=== PATIENT | male | born 1955 | race Caucasian/White ===

== ENCOUNTER 2019-11-28 00:49 | Outpatient (CLI) | payer MEDICARE, SELFPAY ==
[2019-11-28 19:20] LABS: SARS-CoV-2 RNA PCR Negative
== END 2019-11-28 00:50 | disposition home or self-care (01) ==
LOC: ANHCOVIDDT 00:49
PROVIDERS: PCP Internal Medicine; Visit Provider Internal Medicine Gastroenterology
DX: Z01.812 Encounter for preprocedural laboratory examination (principal); Z11.59 Encounter for screening for other viral diseases
CPT/HCPCS: 87635; C9803; U0003

== ENCOUNTER 2019-11-30 02:47 | Day surgery (SDC) | payer MEDICARE, SELFPAY ==
[2019-11-23 11:33] VITALS: BMI 30.2
--- NOTE | 2019-11-30 07:20 | WPDANESEPPF ---
Anes - Initial Pre Proc Eval Procedure: Operation Date: 11/30/19 09:30 Proposed Procedures p Screening Colonoscopy - Tim River MD Date/Time: 11/30/19 07:20 Surgeon: Tim River MD Pre Op Diagnosis: Neoplasm Screening Patient Data Age: 64 Gender: M Height: 1.75 m Weight: 93 kg Allergies Allergy/AdvReac Type Severity Reaction Status Date / Time Penicillins AdvReac Unknown Unknown Verified 11/30/19 08:22 Reaction as a baby Home Medications Medication Instructions Recorded Confirmed Type Adults Multivitamin 1 tablet PO DAILY 04/11/19 11/23/19 History lisinopril 10 mg PO QAM 11/23/19 11/23/19 History rosuvastatin 40 mg PO QAM 11/23/19 11/23/19 History Patient hx anesthesia problems: none Family hx anesthesia problems: none PMFSH Past Medical History Medical History (Updated 11/30/19 @ 07:23 by Yakov Etienne MD) Carpal tunnel syndrome, right upper limb Hyperlipidemia Hypertension Obesity Other cyst of bone, unspecified site Pain of right hand Peroneal tendon tear Shoulder pain Surgical History Surgical History H/O shoulder surgery Orthopedic aftercare (04/21/19) Primary osteoarthritis of left foot Family History Family History Father Family history of cardiovascular disease Other Diabetes mellitus Family history of mental disorder Heart disease Hypertension Social History Social History Social History: 2 drinks/day Smoking status: Never smoker Alcohol intake: current Substance use: unknown 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 Questions were solicited and answers provided to the satisfaction of the patient/family/POA.
[2019-11-30 08:08] VITALS: BP 144/79; PULSE 89; RESP 16; TEMP 36.6; O2SAT 96; BMI 30.4
[2019-11-30] MEDS: LACTATED RINGERS 1,000 ML 150 ML IV CONT (08:37)
--- NOTE | 2019-11-30 09:25 | P.HP_ITS ---
History of Present Illness History of Present Illness Consent: Risks, benefits, and alternatives have been discussed and questions answered. Patient agrees to proceed with procedure. Chief complaint: Neoplasm Screening Narrative: Gregory Stevenson is a 64 year old male Referred for colon cancer screening. [facility] Past Medical History Medical History Carpal tunnel syndrome, right upper limb Hyperlipidemia Hypertension Obesity Other cyst of bone, unspecified site Pain of right hand Peroneal tendon tear Shoulder pain Surgical History Surgical History H/O shoulder surgery Orthopedic aftercare (04/21/19) Primary osteoarthritis of left foot Family History Family History Father Family history of cardiovascular disease Other Diabetes mellitus Family history of mental disorder Heart disease Hypertension Social History Social History Social History: 2 drinks/day Smoking status: Never smoker Alcohol intake: current Substance use: unknown 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 [employer] Gender identity (if verbalized by the patient): Male Spiritual care concerns: No Meds Home Medications and Allergies Home Medications Medication Instructions Recorded Confirmed Type Adults Multivitamin 1 tablet PO DAILY 04/11/19 11/23/19 History lisinopril 10 mg PO QAM 11/23/19 11/23/19 History rosuvastatin 40 mg PO QAM 11/23/19 11/23/19 History Allergies Allergy/AdvReac Type Severity Reaction Status Date / Time Penicillins AdvReac Unknown Unknown Verified 11/30/19 08:22 Reaction as a baby Vital Signs Vital Signs - 24 hr 11/30/19 08:08 Temperature 36.6 C Pulse Rate 89 Respiratory Rate 16 Blood Pressure 144/79 H Pulse Oximetry 96 Exam Resp: Auscultation: clear to auscultation bilaterally Cardio: Rate: regular rate Rhythm: regular rhythm GI: GI Palp: Yes Soft to palpation and No Tenderness to palpation present (GI) Assessment and Plan Assessment and plan (1) Colon cancer screening: Code(s): Z12.11 - Encounter for screening for malignant neoplasm of colon Status: Acute Assessment and Plan: Colonoscopy with possible biopsy or polypectomy or cautery or injection of substances.
[2019-11-30 09:44] VITALS: BP 98/60; PULSE 76; RESP 20; O2SAT 96
[2019-11-30 09:54] VITALS: BP 100/59; PULSE 82; RESP 17; O2SAT 97
[2019-11-30 10:04] VITALS: BP 121/82; PULSE 67; RESP 18; O2SAT 98
== END 2019-11-30 10:20 | disposition home or self-care (01) ==
PROVIDERS: PCP Internal Medicine; Visit Provider Internal Medicine Gastroenterology
PROC: 0DJD8ZZ Inspection of Lower Intestinal Tract, Via Natural or Artificial Opening Endoscopic (ICD-10-PCS; CPT 45378; principal; 2019-11-30 09:30)
DX: Z12.11 Encounter for screening for malignant neoplasm of colon (principal); K57.30 Diverticulosis of large intestine without perforation or abscess without bleeding; D12.8 Benign neoplasm of rectum; I10 Essential (primary) hypertension; E78.5 Hyperlipidemia, unspecified; E66.9 Obesity, unspecified; Z68.30 Body mass index [BMI] 30.0-30.9, adult
CPT/HCPCS: 45385; 87635; 88305; C9803; J2704; J7120; U0003

== ENCOUNTER → 2020-08-20 02:47 | Outpatient (CLI) | payer MEDICARE, SELFPAY ==
[2020-08-20 19:42] LABS: SARS-CoV-2 RNA PCR Negative
== END ==
PROVIDERS: PCP Internal Medicine; Visit Provider Orthopaedic Surgery
DX: Z01.812 Encounter for preprocedural laboratory examination (principal); Z20.822 Contact with and (suspected) exposure to COVID-19
CPT/HCPCS: C9803; U0003; U0005

== ENCOUNTER 2020-08-20 09:22 | Outpatient (CLI) | payer MEDICARE, SELFPAY ==
--- NOTE | 2020-08-20 15:00 | ECG_ITS ---
Measurements Intervals [place] Rate: 85 P: 45 ME: 162 QRS: 43 QRSD: 93 T: 41 QT: 359 QTc: 427 Interpretive Statements SINUS RHYTHM WITH SINUS ARRHYTHMIA ATRIAL PREMATURE COMPLEX INCOMPLETE RIGHT BUNDLE BRANCH BLOCK BASELINE ARTIFACT- I, II, III, AVR, AVL, AVF, V6 BORDERLINE ECG Electronically Signed On 08-20-2020 9:41:49 CDT by Wero Bauman D.O.
== END 2020-08-20 09:23 | disposition home or self-care (01) ==
LOC: ANHSURGERY 09:27
PROVIDERS: PCP Internal Medicine; Visit Provider Orthopaedic Surgery
DX: I10 Essential (primary) hypertension (principal); Z01.818 Encounter for other preprocedural examination; I45.10 Unspecified right bundle-branch block
CPT/HCPCS: 93005

== ENCOUNTER 2020-08-23 00:36 | Day surgery (SDC) | payer MEDICARE, SELFPAY ==
[2020-08-16 10:37] VITALS: BMI 31.2
[2020-08-23 06:48] VITALS: BP 138/85; PULSE 83; RESP 18; TEMP 37.2; O2SAT 99
--- NOTE | 2020-08-23 07:18 | WPDHPUPDATE1 ---
History and Physical Update Update Date/Time: 08/23/20 07:18 History and Physical has been reviewed, including an updated exam of the patient. There are NO changes in the patient's condition. Covid test negative. Risks, benefits, and alternatives have been discussed and questions answered. Patient agrees to proceed with procedure.
[2020-08-23] MEDS: ACETAMINOPHEN 500 MG TABLET 1000 MG PO (07:28)
[2020-08-23] MEDS: LACTATED RINGERS 1,000 ML 30 ML IV CONT (07:30)
[2020-08-23] MEDS: KETOROLAC 15 MG/ML VIAL (*BKC) IV PUSH (07:35)
--- NOTE | 2020-08-23 08:02 | P.PNAN_ITS ---
Anes - Initial Pre Proc Eval Procedure: Operation Date: 08/23/20 08:30 Proposed Procedures p Right Carpal Tunnel Release - Pb Ramirez MD Date/Time: 08/23/20 08:02 Surgeon: Pb Ramirez MD Pre Op Diagnosis: right carpal tunnel syndrome Patient Data Age: 65 Gender: M Height: 5 ft 9 in Weight: 100.3 kg Last Vital Signs Temp 37.2 C 08/23/20 06:48 Pulse 83 08/23/20 06:48 Resp 18 08/23/20 06:48 BP 138/85 08/23/20 06:48 Pulse Ox 99 08/23/20 06:48 Allergies Allergy/AdvReac Type Severity Reaction Status Date / Time Penicillins Allergy Unknown Unknown Verified 08/23/20 07:28 Reaction as a baby Home Medications Medication Instructions Recorded Confirmed Type Adults Multivitamin 1 tablet PO DAILY 04/11/19 08/16/20 History lisinopril 10 mg PO QAM 11/23/19 08/16/20 History rosuvastatin 40 mg PO QAM 08/16/20 08/16/20 History Patient hx anesthesia problems: none Family hx anesthesia problems: none PMFSH Past Medical History Medical History Carpal tunnel syndrome, right upper limb Hyperlipidemia Hypertension Obesity Other cyst of bone, unspecified site Pain of right hand Peroneal tendon tear Shoulder pain Surgical History Surgical History H/O shoulder surgery Orthopedic aftercare (04/21/19) Primary osteoarthritis of left foot Family History Family History Father Family history of cardiovascular disease Other Diabetes mellitus Family history of mental disorder Heart disease Hypertension Social History Social History Social History: 2 drinks/day Smoking packs per day: 0.75 Smoking cigarettes per day: 15.0 Years smoked: 15 Smoking pack-years: 11.25 Smoking status: Former smoker Smoking end date: 11/08/84 Alcohol intake: current Drinks per week: 7 Alcohol use details: WINE Substance use: never Living arrangements: with family Additional living arrangements comments: 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 [employer] Gender identity (if verbalized by the patient): Male Spiritual care concerns: No Anes - Eval Final PreProcedure Day of Procedure 08/23/20 08:02 Patient weight: obese Heart: regular rate and rhythm Lungs: clear to auscultation Airway: Mallampati scale class II Neurological: alert and oriented Last oral intake: >/= 8 hours ASA classification: III Emergent: no Anesthetic plan: proceed Anesthesia type and monitoring: general GIVS and standard monitoring Informed Consent: The patient's anesthetic plan and its attendant risks and benefits were discussed with the patient/family/POA. Questions were solicited and answers provided to the satisfaction of the patient/family/POA.
[2020-08-23] MEDS: ceFAZolin 2 GM/D5W 50 ML 2 GM/50 ML BAG IVPB (08:36)
[2020-08-23] MEDS: BUPIVACAINE/EPINEPHRINE 0.5% 30 ML VIAL 20 ML INFILTRATE (08:52)
[2020-08-23 09:19] VITALS: BP 107/56; PULSE 83; RESP 14; O2SAT 93
--- NOTE | 2020-08-23 09:33 | PM.PROC ---
Procedure Note - Detailed Date of procedure: 08/23/20 Pre-op diagnosis: right carpal tunnel syndrome Post-op diagnosis: same Procedure performed: Right carpal tunnel release Description of procedure: Operative Indications: The patient has history, exam findings, and electrodiagnostic findings consistent with carpal tunnel syndrome. Patient had previous carpal tunnel release 20 years ago. Conservative treatment with bracing/ splinting, activity modifications, medication, ergonomics, injections has failed. Symptoms are daily and affect ability to use hand. The patient desires operative treatment. Procedure: After informed consent was given, the operative extremity was marked in the preoperative holding area. Intravenous antibiotics were given. The patient was taken to the operating room and underwent conscious sedation by the anesthesia team. A time-out was performed confirming patient, procedure, and operative site. Local infiltrate at the carpal tunnel was done with 0.5% marcaine. Prepping and draping was done using chloraprep skin solution with usual surgical sterile technique. Anatomic landmarks marked on skin. Hand was exsanguinated and arm tourniquet inflated to 225mmHg. Incision was made with #15 blade knife in skin crease on volar palm. Hemostasis was achieved with electrocautery. Careful dissection was carried down to the transverse carpal ligament. Retractors were placed. Ligament overlying median nerve was incised in line with skin incision using cherokee blade. Proximal and distal release was done with metzenbaum scissors under direct visualization. Mosquito clamp was placed deep to ligament to protect nerve during release. The nerve was inspected and noted to be intact with mild flattening. Tendons had good excursion. The tourniquet was then released and pressure held. Bleeding points were coagulated with bipolar cautery. The wound was thoroughly irrigated with antibiotic solution. The skin was closed with 4-0 nylon interrupted suture. A sterile dressing was applied. Good capillary refill in the fingers and thumb was noted. The patient was transported to the recovery room in stable condition. All sponge, needle, instrument counts were correct at the end of the case. Implants: None Anesthesia: MAC Surgeon: Pb Ramirez MD Estimated blood loss (mL): 3 Tourniquet time (min): 10 Drains: No Packing: No Pathology: none sent Complications: None Condition: stable Disposition: PACU
[2020-08-23 09:45] VITALS: BP 101/57; PULSE 73; RESP 14; O2SAT 93
[2020-08-23 10:15] VITALS: BP 118/60; PULSE 71; RESP 14
== END 2020-08-23 10:31 | disposition home or self-care (01) ==
PROVIDERS: PCP Internal Medicine; Visit Provider Orthopaedic Surgery
PROC: (CPT 64721; principal; 2020-08-23 08:30)
DX: G56.01 Carpal tunnel syndrome, right upper limb (principal); E78.5 Hyperlipidemia, unspecified; I10 Essential (primary) hypertension; Z87.891 Personal history of nicotine dependence; E66.9 Obesity, unspecified; Z68.32 Body mass index [BMI] 32.0-32.9, adult
CPT/HCPCS: 64721; 93005; A9270; C9803; J0690; J1885; J2250; J2704; J3010; J7120; U0003; U0005

== ENCOUNTER 2020-11-22 08:41 | Emergency (ER) | payer MEDICARE, SELFPAY ==
[2020-11-22 08:50] VITALS: BP 149/87; PULSE 85; RESP 16; TEMP 36.6; O2SAT 98
--- NOTE | 2020-11-22 09:14 | ED.URI ---
HPI - URI/Sore Throat General Chief Complaint: Upper Respiratory Infection Stated Complaint: Cough,Congestion Time Seen by Provider: 11/22/20 09:14 Source: patient Mode of arrival: ambulatory Limitations: no limitations History of Present Illness HPI Narrative: Gregory Stevenson is a 65 yo male with a PMH of high blood pressure and high blood pressure, who [facility] with 4 to 5 days symptoms of congested sinuses and drainage on the back throat coughing aspect especially at night when lying flat. Patient denies fever Related Data Home Medications Medication Instructions Recorded Confirmed lisinopril 10 mg PO QAM 11/23/19 11/22/20 rosuvastatin 40 mg PO QAM 08/16/20 11/22/20 guaifenesin [Mucinex] 1,200 mg PO BID 11/22/20 11/22/20 Allergies Allergy/AdvReac Type Severity Reaction Status Date / Time Penicillins Allergy Unknown Unknown Verified 11/07/20 13:55 Reaction as a baby Review of Systems Review of Systems: Narrative: CONSTITUTIONAL: Denies fever, chills, sweats. EYES: Denies visual changes, redness, discharge. ENT: Denies rhinorrhea, is congestion, no sore throat, otalgia. CARDIOVASCULAR: Denies chest pain, palpitations, edema. RESPIRATORY: Denies dyspnea, wheezing, has cough GASTROINTESTINAL: Denies abdominal pain, nausea, vomiting, diarrhea. GENITOURINARY: Denies dysuria, hematuria, abnormal discharge SKIN: Denies rash or itching. NEUROLOGIC: Denies numbness, or focal weakness. PSYCHIATRIC: Denies anxiety or depression. [facility] Past Medical History Medical History (Updated 11/22/20 @ 09:21 by Amaris Coyle CNP) Carpal tunnel syndrome, right upper limb Hyperlipidemia Hypertension Obesity Other cyst of bone, unspecified site Pain of right hand Peroneal tendon tear Shoulder pain Surgical History Surgical History H/O shoulder surgery Orthopedic aftercare (04/21/19) Primary osteoarthritis of left foot Family History Family History Father Family history of cardiovascular disease Other Diabetes mellitus Family history of mental disorder Heart disease Hypertension Social History Social History Social History: 2 drinks/day Smoking packs per day: 0.75 Smoking cigarettes per day: 15.0 Years smoked: 15 Smoking pack-years: 11.25 Smoking end date: 11/08/84 Alcohol intake: current Drinks per week: 7 Alcohol use details: WINE Substance use: never Additional living arrangements comments: 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 There is no relevant family history pertinent to the presenting complaint. Exam Narrative: Exam Narrative: GENERAL: This is a well-nourished, well-developed patient, in mild distress. HEAD: normocephalic, atraumatic. EYES: Sclera clear/white. Vision is grossly intact. EARS: External ears normal, auditory canals mild erythema and without drainage, TMs normal without perforation. Hearing grossly intact. NOSE: External nose normal without nasal discharge, nares with redness, has rhinorrhea. THROAT: Mucous membranes moist, posterior pharynx erythema NECK: Neck supple, non-tender CARDIOVASCULAR: Regular rate and rhythm without murmurs, gallops, or rubs. RESPIRATORY: Clear to auscultation. Breath sounds equal bilaterally. No wheezes, rales, or rhonchi. GASTROINTESTINAL: Abdomen soft, SKIN: warm, intact with no suspicious lesions or rash, good texture and turgor. NEURO: awake, alert, and oriented to person, place and time. There were no obvious focal neurologic abnormalities. Steady gait EXTREMITIES: Normal range of motion. BACK: Nontend
== END 2020-11-22 09:35 | disposition home or self-care (01) ==
PROVIDERS: Emergency Provider Nurse Practitioner; PCP Internal Medicine
DX: R05 Cough (principal); J01.10 Acute frontal sinusitis, unspecified; F17.210 Nicotine dependence, cigarettes, uncomplicated; E78.5 Hyperlipidemia, unspecified; I10 Essential (primary) hypertension
CPT/HCPCS: 99213; G0463

== ENCOUNTER → 2021-03-27 02:31 | Outpatient (CLI) | payer MEDICARE, SELFPAY ==
[2021-03-27 18:47] LABS: SARS-CoV-2 RNA PCR Negative
== END ==
PROVIDERS: PCP Internal Medicine; Visit Provider Internal Medicine
DX: R68.89 Other general symptoms and signs (principal); Z20.822 Contact with and (suspected) exposure to COVID-19
CPT/HCPCS: C9803; U0003; U0005

== ENCOUNTER → 2021-10-18 02:32 | Outpatient (CLI) | payer MEDICARE, SELFPAY ==
[2021-10-18 16:50] LABS: SARS-CoV-2 RNA PCR Negative
== END ==
PROVIDERS: PCP Internal Medicine; Visit Provider Clinical Nurse Specialist
DX: R50.9 Fever, unspecified (principal); Z20.822 Contact with and (suspected) exposure to COVID-19
CPT/HCPCS: C9803; U0003; U0005

== ENCOUNTER 2021-12-25 07:26 | Day surgery (SDC) | payer MEDICARE, SELFPAY ==
[2021-11-18 08:59] VITALS: BMI 29.5
[2021-12-09 14:22] VITALS: BMI 29.5
[2021-12-25] VITALS (7 sets, daily range): BP systolic 106–140; BP diastolic 54–90; PULSE 73–80; RESP 7–20; TEMP 37.1; O2SAT 96–99; BMI 29.7
--- NOTE | 2021-12-25 08:07 | WPDHPUPDATE1 ---
History and Physical Update Update Date/Time: 12/25/21 08:07 History and Physical has been reviewed, including an updated exam of the patient. There are NO changes in the patient's condition. Risks, benefits, and alternatives have been discussed and questions answered. Patient agrees to proceed with procedure.
--- NOTE | 2021-12-25 08:08 | PM.IMHP ---
H&P: HPI History of Present Illness Date/Time: 12/25/21 08:08 Chief Complaint: back mass Narrative: 66 yo man presents for back mass excision. He reports no changes since last seen in office. Review of Systems Review of Systems: All systems reviewed & are unremarkable except as noted in HPI and below Constitutional: Constitutional: Denies chills, Denies fever(s), Denies headache(s) and Denies weight loss Eyes: Eyes: Denies change in vision ENT: Denies dizziness, Denies headache(s), Denies neck mass and Denies throat swelling Cardiovascular: Cardiovascular: Denies chest pain, Denies lightheadedness and Denies dyspnea Respiratory: Respiratory: Denies cough, Denies dyspnea and Denies wheezing Gastrointestinal: Gastrointestinal: Denies abdominal pain, Denies change in bowel habits, Denies nausea and Denies vomiting Genitourinary: Genitourinary: Denies hematuria and Denies dysuria Musculoskeletal: Musculoskeletal: Reports as per HPI Integumentary/Breasts: Skin/Breast: Reports as per HPI Neurologic: Denies dizziness and Denies headache(s) Allergic/Immunologic: Allergic/Immunologic: Denies throat swelling and Denies wheezing [facility] Past Medical History Medical History Carpal tunnel syndrome, right upper limb Chronic lymphocytic leukemia Hyperlipidemia Hypertension Obesity Other cyst of bone, unspecified site Pain of right hand Peroneal tendon tear Shoulder pain Surgical History Surgical History H/O shoulder surgery Hx of arthrodesis Orthopedic aftercare (04/21/19) Primary osteoarthritis of left foot Family History Family History Father Family history of cardiovascular disease Other Diabetes mellitus Family history of mental disorder Heart disease Hypertension Social History Social History Social History: 2 drinks/day Smoking packs per day: 0.75 Smoking cigarettes per day: 15.0 Years smoked: 15 Smoking pack-years: 11.25 Smoking status: Unknown if ever smoked Second hand tobacco smoke exposure: No Smoking end date: 11/08/84 Alcohol intake: current Drinks per week: 7 Alcohol use details: rare consumption Substance use: never Substance use type: does not use Living arrangements: with family Additional living arrangements comments: 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 [employer] Gender identity (if verbalized by the patient): Male Spiritual care concerns: No Meds Home Medications and Allergies Home Medications Medication Instructions Recorded Confirmed Type lisinopril 10 mg tablet 10 mg PO QAM #90 tabs 12/26/20 12/25/21 Rx atorvastatin 40 mg tablet 40 mg PO QHS #90 tabs 11/05/21 12/25/21 Rx Allergies Allergy/AdvReac Type Severity Reaction Status Date / Time Penicillins Allergy Unknown Unknown Verified 12/25/21 07:43 Reaction as a baby Vital Signs Vital Signs - 24 hr 12/25/21 07:44 Temperature 37.1 C Pulse Rate 78 Respiratory Rate 18 Blood Pressure 140/90 Pulse Oximetry 98 Oxygen Delivery Room Air Exam Const: General: no acute distress and alert Orientation/consciousness: patient oriented x3 HENMT: Head: normocephalic and atraumatic Ears: hearing grossly normal bilaterally General nose exam: Normal nares present Mouth: Yes Normal oral and palatal mucosa present Eyes: Periorbital: periorbital findings normal Sclera: sclerae normal EOM: EOMs intact bilaterally Neck: Neck: normal visual inspection, no lymphadenopathy and trachea midline Chest: Chest palpation & inspection: normal inspection of the chest Resp: Effort & Inspection: normal respiratory effort Auscultation: clear to auscultation bilaterally Cardio: Jugular venous distension: no JVD Rate: regul
[2021-12-25] MEDS: LIDO 1%/EPINEPHRINE 1:100,000 20 ML VIAL 7 ML INFILTRATE (08:30)
--- NOTE | 2021-12-25 08:49 | W.PM.PROC2 ---
Procedure Note - Detailed Date of Procedure 12/25/21 Pre-op Diagnosis Back Mass Post-op Diagnosis Same Procedure Performed Excision of 3 cm right upper back mass Surgeon Parker Ray, DO Anesthesia Local ( 1% lidocaine with epinephrine) Indications this is a 66-year-old man who presented with a back mass that has grown slightly over several years. This is causing him some discomfort when it is pressed on. He denies any redness or drainage. On exam he had a mobile subcutaneous back mass that appears likely to be a lipoma. Decision was made to proceed with excision of 3 cm right upper back mass. Findings 3 cm right upper back mass was excised. This appeared to be a subcutaneous lipoma. No other abnormalities were noted. Description of Procedure Procedure as well as risks, benefits, and alternatives were discussed with patient. Written consent was obtained and placed in chart prior to procedure. Patient was brought back to surgical suite. He was placed in left lateral decubitus position. Time-out was done to confirm patient and procedure. His back area was prepped and draped in sterile fashion using chlorhexidine prep. 1% lidocaine with epinephrine was infiltrated locally around the mass. A 3 cm transverse incision was then made over the mass using a 15 blade scalpel. Electrocautery was used for hemostasis and for dissection through the subcutaneous tissue. The mass was identified and carefully dissected free from the surrounding subcutaneous attachments with electrocautery. The mass was completely excised and sent to the lab for pathology. The wound bed was then carefully inspected. Hemostasis appeared adequate and no other masses were identified. The skin edges were then reapproximated using 3-0 nylon simple interrupted sutures. Bacitracin ointment was then applied followed by 4 x 4 gauze and tape. The patient was then transferred to recovery. Estimated Blood Loss 2 Pathology Yes ( 3 cm right upper back mass) Complications No immediate complications Condition Stable Disposition Same day [facility] Billing Surgery - Charge Forward: Surgery Billing
== END 2021-12-25 09:04 | disposition home or self-care (01) ==
PROVIDERS: PCP Internal Medicine; Visit Provider Surgery
PROC: (CPT 21931; principal; 2021-12-25 08:30)
DX: R22.2 Localized swelling, mass and lump, trunk (principal)
CPT/HCPCS: 21931

== ENCOUNTER 2021-12-25 13:00 | Outpatient (NON) | payer MEDICARE, SELFPAY | END 2021-12-25 13:01 | disposition home or self-care (01) | LOC: ANHLAB 12-26 08:33 | PROVIDERS: PCP Internal Medicine; Visit Provider Surgery | DX: R22.2 Localized swelling, mass and lump, trunk (principal) | CPT/HCPCS: 88304 ==

== ENCOUNTER 2024-02-13 13:43 | Emergency (ER) | payer MEDICARE, SELFPAY ==
--- NOTE | ~2024-02-13 | XR_ITS ---
EXAMINATION: XR chest 2V Exam Date/Time: 02/13/2024 14:25 CDT HISTORY: PNA? COVID POSITIVE X 2 DAYS Comparison: 04/06/2009. RESULT: Lines, tubes, and devices: ACDF hardware. Lungs and pleura: Subsegmental right lower lung airspace disease, likely localizing to the right mid dle lobe. Cardiomediastinal silhouette: Stable. Other: No acute osseous or upper abdominal finding. IMPRESSION: Subsegmental right middle lobe atelectasis/consolidation. Reviewed, dictated and finalized at location K.
[2024-02-13 14:00] VITALS: BP 131/74; PULSE 93; RESP 20; TEMP 36.5; O2SAT 98
--- NOTE | 2024-02-13 16:19 | ED.GENADULT ---
HPI - General Adult General Chief complaint: Recheck/Abnormal Lab/Rx Stated complaint: hypoxia Time Seen by Provider: 02/13/24 14:44 History of Present Illness HPI narrative: Patient with history of CLL presents here with several days of COVID symptoms with positive test 2 days ago, he has been checking his pulse ox at home and was concerned that it dropped down to 91% earlier so came in. Has also been having congestion symptoms and slight loss of appetite Related Data Allergies Allergy/AdvReac Type Severity Reaction Status Date / Time Penicillins Allergy Unknown Unknown Verified 12/24/23 10:38 Reaction as a baby Review of Systems Review of Systems: All systems reviewed & are unremarkable except as noted in HPI and below PMFSH Past Medical History Medical History Carpal tunnel syndrome, right upper limb Chronic lymphocytic leukemia Hyperlipidemia Hypertension Obesity Other cyst of bone, unspecified site Pain of right hand Peroneal tendon tear Shoulder pain Surgical History Surgical History H/O excision of mass exc 3cm R back mass 12/25 H/O shoulder surgery Hx of arthrodesis Orthopedic aftercare (04/21/19) Primary osteoarthritis of left foot Family History Family History Father Family history of cardiovascular disease Other Diabetes mellitus Family history of mental disorder Heart disease Hypertension Social History Social History Social History: 2 drinks/day Smoking packs per day: 0.75 Smoking cigarettes per day: 15.0 Years smoked: 15 Smoking pack-years: 11.25 Smoking status: Former smoker Second hand tobacco smoke exposure: No Smoking end date: 11/08/84 Alcohol intake: current Drinks per week: 7 Alcohol use details: rare consumption Substance use: never Substance use type: does not use Lack of Transportation: No Lack of Food: Never True Current Housing: I Have Housing Concerned About Future Housing: No Difficulty Paying Gas/Electric Bills: No Difficulty Paying for Meds: No Currently Unemployed: No Education: High School Diploma/GED Difficulty w/ Childcare or Family Care: No Living arrangements: with family Additional living arrangements comments: Occupation/Education: occupation 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 EYES: EOMI, conjunctiva normal ENT: Hearing grossly intact LUNGS: Nonlabored breathing. HEART: [Regular rate and rhythm] ABD: [Soft], [nontender to palpation] EXT: Normal range of motion SKIN: [No rashes or lesions.] NEURO: [Alert and oriented x 3. No gross focal sensory or strength deficits.] PSYCH: Normal affect Course Vital Signs Vital signs: Vital Signs Temperature 97.7 F 02/13/24 14:00 Pulse Rate 93 02/13/24 14:00 Respiratory Rate 20 02/13/24 14:00 Blood Pressure 131/74 02/13/24 14:00 Pulse Oximetry 98 02/13/24 14:00 Temperature 97.7 F 02/13/24 14:00 Pulse Rate 93 02/13/24 14:00 Respiratory Rate 20 02/13/24 14:00 Blood Pressure 131/74 02/13/24 14:00 Pulse Oximetry 98 02/13/24 14:00 Medical Decision Making MDM Narrative Medical decision making narrative: 69-year-old male with CLL presents here with with COVID and concern for low oxygen at home he is very well-appearing here, speaking full sentences, no labored respirations, oxygen thankfully is 98% here after ambulating. Chest x-ray does shows slight consolidat
== END 2024-02-13 15:08 | disposition home or self-care (01) ==
LOC: ANHED 14:57
PROVIDERS: Emergency Provider Emergency Medicine; PCP Clinical Nurse Specialist
DX: U07.1 COVID-19 (principal); J18.9 Pneumonia, unspecified organism; I10 Essential (primary) hypertension; E78.5 Hyperlipidemia, unspecified; C91.10 Chronic lymphocytic leukemia of B-cell type not having achieved remission; Z87.891 Personal history of nicotine dependence
CPT/HCPCS: 71046; 99283